=== PATIENT | female | born 1995 | race Caucasian/White ===

== ENCOUNTER 2016-06-16 13:05 | Emergency (ER) | payer MEDICAID ==
[2016-06-16] MEDS ORDERED: DIPH/PERTUSS(ACELL)/TETANUS VAC/PF 0.5 ML SYR (>=10YO) IM ONE (13:09)
--- NOTE | 2016-06-16 13:09 | ER Document Report ---
ED Medical Screen (RME) - General Stated Complaint: LEFT FOOT INJURY Notes: This 21-year-old female who stepped on a piece of glass punctured her shoe and her foot I greeted and performed a rapid initial assessment of this patient. Comprehensive ED assessment and evaluation of the patient, analysis of test results and completion of the medical decision making process will be conducted by additional ED providers. TRAVEL OUTSIDE OF THE [place] IN LAST 30 DAYS: No - Related Data Allergies/Adverse Reactions: Sulfa (Sulfonamide Antibiotics) Allergy (Verified 05/11/16 06:28) Past Medical History - Immunizations Hx Diphtheria, Pertussis, Tetanus Vaccination: Yes
[2016-06-16] MEDS ORDERED: LIDOCAINE 1% INJ-PF (10 MG/ML) 30 ML SDV INJ ONE (13:55)
[2016-06-16] MEDS ORDERED: LIDOCAINE 1% INJ-PF (10 MG/ML) 30 ML SDV ONE (14:37)
[2016-06-16] MEDS ORDERED: CEPHALEXIN 500 MG CAPSULE PO ONE (14:59)
--- NOTE | 2016-06-16 14:59 | ER Document Report ---
HPI - HPI Patient complains to provider of: foot injury Pain Level: 3 Context: Patient is a 21-year-old female who was in the parking lot several pieces of glass that went through her shoe. Boyfriend said he took a piece of glass they felt that the edge splinted that he is concerned peas broke off in her foot. Is unaware of when her last tetanus shot was. Past medical history significant for SVT - CARDIOVASCULAR Cardiovascular: DENIES: Chest pain - REPRODUCTIVE Reproductive: REPORTS: : - DERM Skin Color: Normal, [place] Past Medical History - General Information source: Patient - Social History Smoking Status: Unknown if Ever Smoked Family History: Reviewed & Not Pertinent Patient has suicidal ideation: No Patient has homicidal ideation: No Renal/ Medical History: Denies: Hx Peritoneal Dialysis Surgical Hx: Negative - Immunizations Hx Diphtheria, Pertussis, Tetanus Vaccination: Yes Vertical Provider Document - CONSTITUTIONAL Agree With Documented VS: Yes Exam Limitations: No Limitations General Appearance: WD/WN, No Apparent Distress, Mild Distress - INFECTION CONTROL TRAVEL OUTSIDE OF THE [place] IN LAST 30 DAYS: No - RESPIRATORY O2 Sat by Pulse Oximetry: 100 - CARDIOVASCULAR Pulses: Normal: Dorsalis pedis Notes: cap refill less than 2 seconds in lower extremity digits - MUSCULOSKELETAL/EXTREMETIES Musculoskeletal/Extremeties: MAEW, FROM, Non-Tender, No Edema Notes: Patient is a 1 cm laceration on the base of the big toe. Bottom of her foot. No evidence of protruding foreign body, no bleeding - NEURO Level of Consciousness: Awake, Alert, Appropriate Motor/Sensory: No Motor Deficit, No Sensory Deficit Course - Re-evaluation Re-evalutation: 06/16/16 14:56 Wound was explored after giving about 2 mL of lidocaine around no evidence of retained foreign body. Hemostasis was achieved and dressed with a Band-Aid. Patient be discharged home after she is received her tetanus booster and will go home on by mouth Keflex can follow-up with her primary care provider as needed. - Vital Signs Vital signs: Temp Pulse Resp BP Pulse Ox 98.1 F 97 16 119/71 100 06/16/16 13:11 06/16/16 13:11 06/16/16 14:01 06/16/16 13:11 06/16/16 13:11 Discharge - Discharge Clinical Impression: Foot laceration Qualifiers: Encounter type: initial encounter Laterality: left Qualified Code(s): S91.312A - Laceration without foreign body, left foot, initial encounter Condition: Good Disposition: HOME, SELF-CARE Instructions: Tetanus Immunization Given ([facility]), Prophylactic Antibiotic ([facility]), Antibiotic Ointment Protection ([facility]), Soap Cleansing ([facility]), Laceration Care ([facility] ), Use of [id number]-Pldpjiw Ibuprofen ([facility]) Additional Instructions: Please take medication as prescribed. Please avoid immersing laceration in standing bodies of water such as water in the shower or bath. Please clean with soap and water daily Prescriptions: Cephalexin Monohydrate [Keflex 500 mg Capsule] 500 mg PO BID 10 Days
[2016-06-16 15:39] VITALS: BP 108/72
== END 2016-06-16 15:37 | disposition home or self-care (01) ==
LOC: ER 13:05
DX: S91.312A Laceration without foreign body, left foot, initial encounter (principal); W22.8XXA Striking against or struck by other objects, initial encounter; Y92.481 Parking lot as the place of occurrence of the external cause; Z23 Encounter for immunization
CPT/HCPCS: 90471; 90715; 99283